=== PATIENT | male | born 1940 | race Asian ===

== ENCOUNTER 2017-11-05 08:20 | Day surgery (SDC) | payer MEDICARE, MEDICAID ==
[~2017-11-05] VITALS: Ht 165.1 cm; Wt 71.8 kg
[2017-11-05] MEDS ORDERED: normal saline 1000ml 1,000 ML IV SCH ×2 (08:40→10:15)
[2017-11-05 09:08] VITALS: BP 133/80
[2017-11-05 09:28] LABS: BASOPHILS # (AUTO) 0.1 X10'3 (0-0.2); BASOPHILS % (AUTO) 0.8 % (0-1); EOSINOPHILS # (AUTO) 0.5 X10'3 (0-0.9); EOSINOPHILS % (AUTO) 4.7 % (0-6); HEMATOCRIT 40.5 % (42.0-52.0); HEMOGLOBIN 13.3 g/dl (14.0-17.9); LYMPHOCYTES # (AUTO) 1.5 X10'3 (1.1-4.8); LYMPHOCYTES % (AUTO) 14.6 % (21-51); MEAN CORPUSCULAR HEMOGLOBIN 30.4 PG (27.0-31.0); MEAN CORPUSCULAR HGB CONC 32.7 % (33.0-36.5); MEAN PLATELET VOLUME 8.5 FL (7.4-10.4); MONOCYTES # (AUTO) 1.2 X10'3 (0-0.9); MONOCYTES % (AUTO) 11.7 % (2-12); NEUTROPHILS # (AUTO) 7.1 X10'3 (1.8-7.7); NEUTROPHILS % (AUTO) 68.2 % (42-75); PLATELET COUNT 169 X10'3 (140-440); RED BLOOD COUNT 4.36 X10'6 (4.70-6.10); RED CELL DISTRIBUTION WIDTH 17.3 % (11.5-14.5); WHITE BLOOD COUNT 10.4 X10'3 (4.5-11.0)
[2017-11-05] MEDS ORDERED: FURO80TA3 PO (09:44)
[2017-11-05] MEDS ORDERED: FOLI1TAB16 PO (09:47)
[2017-11-05] MEDS ORDERED: HYDR-3717 PO (09:47)
[2017-11-05] MEDS ORDERED: CALC667C5 PO (09:47)
[2017-11-05] MEDS ORDERED: CLOP75TA35 PO (09:47)
[2017-11-05] MEDS ORDERED: DIGO125T78 PO (09:47)
[2017-11-05] MEDS ORDERED: OMEP40CA37 PO (09:47)
[2017-11-05] MEDS ORDERED: ATOR20TA66 PO (09:47)
[2017-11-05] MEDS ORDERED: FOLI1TAB34 PO (09:47)
[2017-11-05] MEDS ORDERED: midazolam 2 mg/2 ml injection IV PRN (10:15)
[2017-11-05] MEDS ORDERED: fentaNYL/PF 50MCG/1 ML 2ML syringe IV PRN (10:15)
[2017-11-05] MEDS ORDERED: heparin 25,000 UNIT/D5W 250ml 0 ML IV ONE (10:31)
[2017-11-05] MEDS ORDERED: LIDOcaine 1%/PF 5ML 10 MG/ML VIAL ONE (10:31)
[2017-11-05] MEDS ORDERED: iohexol 300mg/ml 100ml inj. ONE (10:32)
[2017-11-05] MEDS ORDERED: heparin 1,000 UNITS/NS 500ml 500 ML ONE (10:33)
[2017-11-05] MEDS ORDERED: fentaNYL/PF 50MCG/1 ML 2ML syringe ONE (10:36)
[2017-11-05 11:42] VITALS: BP 140/77
[2017-11-05 11:45] VITALS: BP 130/76
[2017-11-05 11:54] VITALS: BP 150/93
== END 2017-11-05 12:02 | disposition home or self-care (01) ==
LOC: SSTAY O 08:20
PROVIDERS: ATTEND Radiology Vascular & Interventional Radiology
DX: T82.858A Stenosis of other vascular prosthetic devices, implants and grafts, initial encounter (principal); I12.9 Hypertensive chronic kidney disease with stage 1 through stage 4 chronic kidney disease, or unspecified chronic kidney disease; N18.9 Chronic kidney disease, unspecified; I82.290 Acute embolism and thrombosis of other thoracic veins; Z79.899 Other long term (current) drug therapy; Z99.2 Dependence on renal dialysis
CPT/HCPCS: 36415; 36901; 36907; 85025; C1725; C1769; C1894; J1644; J2001; J3010; J7030; Q9967; A4620